=== PATIENT | female | born 1965 | race Caucasian/White ===

== ENCOUNTER → 2019-04-02 | Outpatient (CLI) | payer BC ==
--- NOTE | 2019-04-03 08:32 | EKG ---
[place] [address] [employer] [address] ELECTROCARDIOGRAM REPORT Name: RICARDO SPARROW Room #: REG CLI [id number] Admission: 04/02/19 Attend Phys: Farhad Stubbs, Discharge: Date of : 67 Report #: [id number] THIS REPORT FOR: //name// [facility] Test Date: 2019-04-02 Test Time: 08:59:50 Pat Name: RICARDO SPARROW Department: Room: Gender: F [employer]ible [employer] Installer: Royal ETIENNE : 1965 Requested By: Farhad Stubbs Order Number: [id number] MD: Bob Benoit Measurements Intervals [place] Rate: 61 P: 7 CO: 127 QRS: -11 QRSD: 94 T: 16 QT: 418 QTc: 421 Interpretive Statements Sinus rhythm Poor R wave progression No previous ECG available for comparison Electronically Signed On 04-03-2019 8:32:45 CDT by Bob Benoit [email or web address] <ELECTRONICALLY SIGNED> By: Bob Benoit MD, [facility] 04/03/19 [id number] Bob Benoit MD, FACC /EPI
== END ==
LOC: CV 08:33
DX: I49.9 Cardiac arrhythmia, unspecified (principal)